=== PATIENT | female | born 1980 | race Caucasian/White ===

== ENCOUNTER 2020-11-28 16:50 | Emergency (ER) | payer OTHER ==
[~2020-11-28] VITALS: Ht 167.6 cm; Wt 106.8 kg
[2020-11-28 16:53] VITALS: BP 138/93
--- NOTE | 2020-11-28 17:28 | NUR ---
pt is 40 yo female c/o bilateral knee and lower back pain s/p grd level fall yesterday, pt tripped on side walk landing on all 4s, abrasion to bilateral knee, pt cleaned yesterday and applied antibiotic ointment, no loss of bladder/bowel, no numbness to extremities, pt amb with slow steady gait from lobby to fast track
[2020-11-28] MEDS ORDERED: ketorolac tromethamine 15mg/ml inj. IM ONE (18:00)
[2020-11-28] MEDS ORDERED: DIAZ5TAB22 PO (18:07)
== END 2020-11-28 19:58 | disposition home or self-care (01) ==
LOC: ER 16:51
DX: S80.02XA Contusion of left knee, initial encounter (principal); S80.211A Abrasion, right knee, initial encounter; S50.311A Abrasion of right elbow, initial encounter; Z79.899 Other long term (current) drug therapy; W01.0XXA Fall on same level from slipping, tripping and stumbling without subsequent striking against object, initial encounter; Y93.01 Activity, walking, marching and hiking; Y92.480 Sidewalk as the place of occurrence of the external cause; Y99.8 Other external cause status
CPT/HCPCS: 29505; 73564; 96372; 99283; J1885